=== PATIENT | female | born 1995 | race Caucasian/White ===

== ENCOUNTER → 2021-11-24 15:25 | Outpatient (CLI) | payer OTHER, SELFPAY ==
--- NOTE | ~2021-11-24 | US_ITS ---
EXAMINATION: US pelvic complete DATE: 11/24/2021 15:50 INDICATION: Pelvic pain TECHNIQUE: Multiple transabdominal sonographic images of the pelvis were obtained. COMPARISON: None. FINDINGS: The uterus measures 7.8 x 3.8 x 5.0 cm. The endometrial complex measures 6 mm. The right ov anthony measures 2.3 x 1.8 x 2.7 cm. The left ovary measures 2.2 x 1.7 x 2.3 cm. There is normal vascular flow in the ovaries. There is no free fluid in the pelvis. IMPRESSION: 1. No sonographic correlate for the patient's symptoms. Reviewed, dictated and finalized at location A. [facility]
== END ==
PROVIDERS: Visit Provider Nurse Practitioner
DX: R10.2 Pelvic and perineal pain (principal)
CPT/HCPCS: 76856